=== PATIENT | male | born 1940 | race Caucasian/White ===

== ENCOUNTER 2017-01-11 20:04 | Emergency (ER) | payer MEDICARE, OTHER ==
[2017-01-11 20:12] VITALS: BP 181/65
--- NOTE | 2017-01-11 20:31 | ED Physician Documentation ---
PD HPI LOWER EXT INJURY - Stated complaint Stated Complaint: R PINKY TOE BLEEDING - Chief complaint Chief Complaint: Trauma Ext - History obtained from History obtained from: Patient, Friend - History of Present Illness PD HPI LOW EXT INJURY LOCATION: Right, Toe (5th) Type of injury: Laceration Where injury occurred: Home Timing - onset: Today Timing - duration: Hours Timing - details: Abrupt onset, Still present Improved by: Dressing Worsened by: Moving Contributing factors: Other (on aspirin). No: Anticoagulated Similar symptoms before: Has not had sx before Recently seen: Not recently seen - Additional information Additional information: 76 y/o male with a history of htn and oncomycosis of the toes was trimming his nails this morning when he got blood back from the tip of the 5th digit and he has not been able to control the bleeding since. Review of Systems Constitutional: denies: Fever Respiratory: denies: Dyspnea GI: denies: Vomiting Skin: reports: Laceration (s). denies: Rash Musculoskeletal: denies: Neck pain, Back pain, Extremity pain PD PAST MEDICAL HISTORY - Past Medical History Cardiovascular: Hypertension, High cholesterol GI: GERD - Past Surgical History Past Surgical History: Yes General: Colonoscopy - Present Medications Home Medications: Ambulatory Orders Medication Instructions Recorded Confirmed Aspirin [Aspir 81] 81 mg PO 08/29/13 08/29/13 Esomeprazole Magnesium [Nexium] 40 mg PO DAILY 08/29/13 08/29/13 Loratadine [Claritin] 5 mg PO 08/29/13 08/29/13 Moro-3/Dha/Epa/Fish Oil [Fish Oil] 500 mg PO 08/29/13 08/29/13 Simvastatin [Zocor] 40 mg PO 08/29/13 08/29/13 Vit D3-Vit K/Berberine/Hops 1 each PO 08/29/13 08/29/13 [Ostera Tablet] hydroCHLOROthiazide [Hydrodiuril] 25 mg PO 08/29/13 08/29/13 - Allergies Allergies/Adverse Reactions: Allergies Allergy/AdvReac Type Severity Reaction Status Date / Time No Known Drug Allergies Allergy Verified 01/11/17 20:10 - Social History Does the pt smoke?: No Smoking Status: Never smoker Does the pt drink ETOH?: Yes Does the pt have substance abuse?: No - Immunizations Immunizations are current?: Yes - POLST Patient has POLST: Yes PD ED PE NORMAL - Vitals Vital signs reviewed: Yes (hypertensive ) - General General: No acute distress, Well developed/nourished - HEENT HEENT: Atraumatic, PERRL, EOMI - Respiratory Respiratory: No respiratory distress - Extremities Extremities: Other (There is oncomycosis present with nail deformity. At the tip of the 5th digit the skin is skived and is bleeding. ) - Neuro Neuro: No motor deficit, No sensory deficit - Psych Psych: Normal mood, Normal affect Results - Vitals Vitals: Vital Signs - 24 hr 01/11/17 20:10 Temperature 36.7 C Heart Rate 100 Respiratory 16 Rate Blood Pressure 181/65 H O2 Saturation 100 Oxygen O2 Source Room air PD MEDICAL DECISION MAKING - ED course Complexity details: considered differential, d/w patient, d/w family ED course: 76 y/o male with a skin avulsion of the tip of the 5th digit on the right foot. It looks like he missed trimming the toenail itself and cut the skin. The clot is removed from the area the nail is trimmed and the base of the skin avulsion is cauterized with AgNO3. The remaining toes on that foot are trimmed and I have recommended the patient talk to Dr. Lira about treatment for the oncomyosis. Departure - Departure Disposition: 01 Home, Self Care Clinical Impression: Avulsion of skin of toe Qualifiers: Encounter type: initial encounter Qualified Code(s): S91.109A - Unspecified open wound of unspecified toe(s) without damage to nail, initial encounter Condition: Stable Instructions: ED Avulsion Dermal Follow-Up: Micah Lira MD [Primary Care Provider] -
== END 2017-01-11 21:08 | disposition home or self-care (01) ==
LOC: ED 20:04
DX: S91.104A Unspecified open wound of right lesser toe(s) without damage to nail, initial encounter (principal); W27.8XXA Contact with other nonpowered hand tool, initial encounter; Y93.E8 Activity, other personal hygiene; Y92.009 Unspecified place in unspecified non-institutional (private) residence as the place of occurrence of the external cause; B35.1 Tinea unguium; I10 Essential (primary) hypertension; Z79.82 Long term (current) use of aspirin
CPT/HCPCS: 11730; 99282; 99283

== ENCOUNTER 2017-12-23 08:00 | Outpatient (CLI) | payer MEDICARE, OTHER ==
[2017-12-23 19:00] LABS: BASOPHILS # (AUTO) 0.1 10^3/uL (0.0-0.1); BASOPHILS % (AUTO) 1.1 %; EOSINOPHILS # (AUTO) 0.2 10^3/uL (0.0-0.7); EOSINOPHILS % (AUTO) 2.8 %; HGB - HEMOGLOBIN 12.7 g/dL (14.0-18.0); LYMPHOCYTES # (AUTO) 1.2 10^3/uL (1.5-3.5); LYMPHOCYTES % (AUTO) 18.6 %; MEAN CORPUSCULAR HGB CONC 34.5 g/dL (32.0-36.0); MEAN CORPUSCULAR VOLUME 89.9 fL (80.0-94.0); MEAN PLATELET VOLUME 7.9 fL (7.4-11.4); MONOCYTES # (AUTO) 0.6 10^3/uL (0.0-1.0); MONOCYTES % (AUTO) 9.2 %; NEUTROPHILS # (AUTO) 4.5 10^3/uL (1.5-6.6); NEUTROPHILS % (AUTO) 68.3 %; PLT - PLATELET COUNT 228 10^3/uL (130-450); RED BLOOD COUNT 4.09 10^6/uL (4.70-6.10); RED CELL DISTRIBUTION WIDTH 13.3 % (12.0-15.0); WHITE BLOOD COUNT 6.5 x10^3/uL (4.8-10.8)
[2017-12-23 19:08] LABS: ALBUMIN 4.2 g/dL (3.2-5.5); ALBUMIN/GLOBULIN RATIO 1.3 (1.0-2.2); CREATININE 0.6 mg/dL (0.6-1.2); TOTAL PROTEIN 7.4 g/dL (6.7-8.2)
[2017-12-23 19:27] LABS: THYROID STIMULATING HORMONE 2.17 uIU/mL (0.34-5.60)
== END 2017-12-23 08:01 ==
LOC: LAB.WCP 08:00
PROVIDERS: ATTEND Family Medicine
DX: E53.8 Deficiency of other specified B group vitamins (principal); R41.3 Other amnesia
CPT/HCPCS: 36415; 80053; 81599; 82607; 83921; 84443; 85025; 86592

== ENCOUNTER 2018-01-06 14:17 | Outpatient (CLI) | payer MEDICARE, OTHER ==
[2018-01-06 19:22] LABS: ALBUMIN 3.7 g/dL (3.2-5.5); ALBUMIN/GLOBULIN RATIO 1.1 (1.0-2.2); ALKALINE PHOSPHATASE 66 IU/L (42-121); ALT ALANINE AMINOTRANSFERASE 19 IU/L (10-60); AST ASPARTATE AMINOTRANSFERASE 28 IU/L (10-42); BILIRUBIN,TOTAL 0.6 mg/dL (0.2-1.0); BUN - BLOOD UREA NITROGEN 16 mg/dL (6-20); CALCIUM 9.3 mg/dL (8.5-10.3); CARBON DIOXIDE - CO2 26 mmol/L (21-32); CHLORIDE 100 mmol/L (101-111); CHOL/HDL RATIO 2.7 (<5.0); CHOLESTEROL 149 mg/dL; CREATININE 0.8 mg/dL (0.6-1.2); GFR - MDRD 94 (>89); GLUCOSE 97 mg/dL (70-100); HDL CHOLESTEROL 55 mg/dL; LDL CHOLESTEROL,CALCULATED 61 mg/dL; LDL/HDL RATIO 1.1 (<3.6); SODIUM 133 mmol/L (135-145); TOTAL PROTEIN 7.1 g/dL (6.7-8.2); VLDL CHOLESTEROL 33 mg/dL
== END 2018-01-06 14:18 | disposition home or self-care (01) ==
LOC: LAB.WCP 14:17
PROVIDERS: ATTEND Family Medicine
DX: E78.9 Disorder of lipoprotein metabolism, unspecified (principal)
CPT/HCPCS: 36415; 80053; 80061; 83721

== ENCOUNTER 2019-02-03 08:00 | Outpatient (CLI) | payer MEDICARE, OTHER ==
[2019-02-03 12:34] LABS: BASOPHILS # (AUTO) 0.1 10^3/uL (0.0-0.1); BASOPHILS % (AUTO) 1.3 %; EOSINOPHILS # (AUTO) 0.3 10^3/uL (0.0-0.7); EOSINOPHILS % (AUTO) 7.4 %; LYMPHOCYTES # (AUTO) 1.2 10^3/uL (1.5-3.5); LYMPHOCYTES % (AUTO) 30.6 %; MEAN CORPUSCULAR HEMOGLOBIN 32.4 pg (27.0-31.0); MEAN CORPUSCULAR HGB CONC 34.3 g/dL (32.0-36.0); MEAN CORPUSCULAR VOLUME 94.5 fL (80.0-94.0); MEAN PLATELET VOLUME 10.6 fL (7.4-11.4); MONOCYTES # (AUTO) 0.4 10^3/uL (0.0-1.0); MONOCYTES % (AUTO) 11.4 %; NEUTROPHILS # (AUTO) 1.8 10^3/uL (1.5-6.6); PLT - PLATELET COUNT 229 10^3/uL (130-450); RED BLOOD COUNT 4.01 10^6/uL (4.70-6.10); RED CELL DISTRIBUTION WIDTH 12.7 % (12.0-15.0); WHITE BLOOD COUNT 3.8 x10^3/uL (4.8-10.8)
[2019-02-03 13:01] LABS: HB2 TOTAL 14.5 g/dL; HEMOGLOBIN A1C 0.49 g/dL; HEMOGLOBIN A1C % 5.2 % (4.6-6.2)
[2019-02-03 13:03] LABS: ALBUMIN 4.2 g/dL (3.2-5.5); ALBUMIN/GLOBULIN RATIO 1.6 (1.0-2.2); BILIRUBIN,TOTAL 0.9 mg/dL (0.2-1.0); CREATININE 0.6 mg/dL (0.6-1.2); TOTAL PROTEIN 6.9 g/dL (6.7-8.2)
== END 2019-02-03 23:59 | disposition home or self-care (01) ==
LOC: LAB.WCP 08:00
PROVIDERS: ATTEND Family Medicine
DX: E53.8 Deficiency of other specified B group vitamins (principal); R73.01 Impaired fasting glucose
CPT/HCPCS: 36415; 80053; 82607; 83036; 84443; 85025

== ENCOUNTER 2021-03-11 09:27 | Outpatient (CLI) | payer MEDICARE, OTHER ==
[2021-03-11 12:16] LABS: BASOPHILS % (AUTO) 0.6 %; EOSINOPHILS # (AUTO) 0.1 10^3/uL (0.0-0.7); EOSINOPHILS % (AUTO) 3.1 %; HCT - HEMATOCRIT 37.8 % (42.0-52.0); HGB - HEMOGLOBIN 12.6 g/dL (14.0-18.0); LYMPHOCYTES # (AUTO) 1.3 10^3/uL (1.5-3.5); LYMPHOCYTES % (AUTO) 36.8 %; MEAN CORPUSCULAR HGB CONC 33.3 g/dL (32.0-36.0); MEAN CORPUSCULAR VOLUME 92.9 fL (80.0-94.0); MONOCYTES # (AUTO) 0.4 10^3/uL (0.0-1.0); NEUTROPHILS # (AUTO) 1.7 10^3/uL (1.5-6.6); NEUTROPHILS % (AUTO) 48.5 %; PLT - PLATELET COUNT 212 10^3/uL (130-450); RED BLOOD COUNT 4.07 10^6/uL (4.70-6.10); RED CELL DISTRIBUTION WIDTH 13.2 % (12.0-15.0); WHITE BLOOD COUNT 3.6 x10^3/uL (4.8-10.8)
[2021-03-11 12:54] LABS: ALBUMIN 4.2 g/dL (3.2-5.5); ALBUMIN/GLOBULIN RATIO 1.6 (1.0-2.2); ALKALINE PHOSPHATASE 79 IU/L (42-121); ALT ALANINE AMINOTRANSFERASE 12 IU/L (10-60); AST ASPARTATE AMINOTRANSFERASE 16 IU/L (10-42); BILIRUBIN,TOTAL 0.9 mg/dL (0.2-1.0); BUN - BLOOD UREA NITROGEN 9 mg/dL (6-20); CALCIUM 9.1 mg/dL (8.5-10.3); CARBON DIOXIDE - CO2 26 mmol/L (21-32); CHLORIDE 93 mmol/L (101-111); CHOL/HDL RATIO 4.2 (<5.0); CHOLESTEROL 229 mg/dL; CREATININE 0.7 mg/dL (0.6-1.2); GFR - MDRD 109 (>89); GLUCOSE 89 mg/dL (70-100); HDL CHOLESTEROL 55 mg/dL; LDL CHOLESTEROL,CALCULATED 158 mg/dL; LDL/HDL RATIO 2.9 (<3.6); POTASSIUM 4.7 mmol/L (3.5-5.0); SODIUM 127 mmol/L (135-145); THYROID STIMULATING HORMONE 2.94 uIU/mL (0.34-5.60); TOTAL PROTEIN 6.8 g/dL (6.7-8.2); TRIGLYCERIDES 78 mg/dL; VLDL CHOLESTEROL 16 mg/dL
[2021-03-11 13:00] LABS: ESTIMATED AVERAGE GLUCOSE 97 mg/dL (70-100)
== END 2021-03-11 23:59 | disposition home or self-care (01) ==
LOC: LAB.WCP 09:27
PROVIDERS: ATTEND Internal Medicine
DX: I10 Essential (primary) hypertension (principal); E53.8 Deficiency of other specified B group vitamins; R73.01 Impaired fasting glucose; R41.3 Other amnesia
CPT/HCPCS: 36415; 80053; 80061; 82607; 83036; 83721; 84443; 85025

== ENCOUNTER 2021-12-08 14:52 | Outpatient (CLI) | payer MEDICARE, OTHER ==
--- NOTE | 2021-12-08 16:55 | MRI Report ---
PROCEDURE: Lumbar Spine W/O INDICATIONS: L1 COMPRESSION FX TECHNIQUE: Noncontrast sagittal T1 spin echo and T2 fast echo, sagittal STIR, axial T1 and T2 fast spin echo thr ough the lumbar spine. In cases with scoliosis, additional coronal T2 fast spin echo may be performe d. COMPARISON: None. FINDINGS: Image quality: Excellent. Alignment and Curvature: There is 4 mm retrolisthesis of L2 on L3, 5 mm retrolisthesis of L3 on L4, L5 on S1. Bone Marrow: Marrow is of normal overall signal. There is a greater than 90% compression deformity a t L1 with approximately 3 mm retropulsion of the posterior aspect of the vertebral body. There is inc reased T2/STIR signal intensity within the vertebral body. In addition, prominent reactive endplate c hanges are present at L3. Linear T1 hypointensity is present within this region without overall verte bral body height loss. Spinal Cord: Conus medullaris terminates at the L1 level. Visualized cord demonstrates normal signa l and size. Paraspinous Soft Tissues: No paravertebral masses. Discs: Moderate severe desiccation is present throughout the lumbar spine. L1-L2: Mild disc bulge with moderate spinal stenosis. Moderate bilateral foraminal narrowing, left greater than right with facet and ligamentum flavum hypertrophy. L2-L3: Mild disc bulge with mild spinal stenosis. Moderate to severe left and moderate right kelly inal narrowing with facet and ligamentum flavum hypertrophy. L3-L4: Mild disc bulge with mild spinal stenosis. Severe right and moderate left foraminal narrowin g with nerve root flattening on the right. Facet and ligamentum flavum hypertrophy are present. L4-L5: Mild disc bulge without spinal stenosis. Severe right and moderate left foraminal narrowing with nerve root flattening on the right. Facet and ligamentum flavum hypertrophy are present. L5-S1: Mild disc bulge without spinal stenosis. Severe bilateral foraminal narrowing with nerve suraj t flattening most notable on the left. Facet and ligamentum flavum hypertrophy are present. IMPRESSION: Greater than 90% acute/subacute compression deformity at L1. Endplate changes along the superior endplate of L3 with linear hypointensity suggestive of fracture w ithout loss of vertebral body height. Multilevel spinal stenosis most notable at L1-2, L2-3 and L3-4 secondary to disc bulge with contribut ing effect of facet/ligament of flavum arthropathy as well as retropulsion from compression fracture at L1. Multilevel moderate to severe foraminal narrowing most severe from L3-4 through L5-S1 predominantly s econdary to facet arthropathy. Reviewed by: Rona Toney MD on 12/08/2021 4:54 PM PDT Approved by: Rona Toney MD on 12/08/2021 4:54 PM PDT Station ID: [id number]
== END 2021-12-08 14:53 | disposition home or self-care (01) ==
LOC: DI 14:52
PROVIDERS: ATTEND Physical Medicine & Rehabilitation Pain Medicine
DX: S32.010A Wedge compression fracture of first lumbar vertebra, initial encounter for closed fracture (principal); M47.816 Spondylosis without myelopathy or radiculopathy, lumbar region; M47.817 Spondylosis without myelopathy or radiculopathy, lumbosacral region; M48.061 Spinal stenosis, lumbar region without neurogenic claudication; M43.16 Spondylolisthesis, lumbar region; M43.17 Spondylolisthesis, lumbosacral region; M51.36 Other intervertebral disc degeneration, lumbar region; M51.37 Other intervertebral disc degeneration, lumbosacral region

== ENCOUNTER 2021-12-12 09:19 | Outpatient (CLI) | payer MEDICARE, OTHER ==
[2021-12-12 11:48] LABS: BASOPHILS % (AUTO) 0.6 %; EOSINOPHILS # (AUTO) 0.2 10^3/uL (0.0-0.7); EOSINOPHILS % (AUTO) 3.8 %; HCT - HEMATOCRIT 39.1 % (42.0-52.0); HGB - HEMOGLOBIN 13.1 g/dL (14.0-18.0); LYMPHOCYTES # (AUTO) 1.5 10^3/uL (1.5-3.5); LYMPHOCYTES % (AUTO) 32.4 %; MEAN CORPUSCULAR HEMOGLOBIN 30.9 pg (27.0-31.0); MEAN CORPUSCULAR HGB CONC 33.5 g/dL (32.0-36.0); MEAN CORPUSCULAR VOLUME 92.2 fL (80.0-94.0); MEAN PLATELET VOLUME 10.2 fL (7.4-11.4); MONOCYTES # (AUTO) 0.4 10^3/uL (0.0-1.0); MONOCYTES % (AUTO) 8.8 %; NEUTROPHILS # (AUTO) 2.6 10^3/uL (1.5-6.6); NEUTROPHILS % (AUTO) 54.2 %; PLT - PLATELET COUNT 236 10^3/uL (130-450); RED BLOOD COUNT 4.24 10^6/uL (4.70-6.10); WHITE BLOOD COUNT 4.8 x10^3/uL (4.8-10.8)
[2021-12-12 12:26] LABS: THYROID STIMULATING HORMONE 3.35 uIU/mL (0.34-5.60)
[2021-12-12 12:32] LABS: ALBUMIN 3.9 g/dL (3.2-5.5); ALBUMIN/GLOBULIN RATIO 1.3 (1.0-2.2); ALKALINE PHOSPHATASE 110 IU/L (42-121); ALT ALANINE AMINOTRANSFERASE 11 IU/L (10-60); AST ASPARTATE AMINOTRANSFERASE 16 IU/L (10-42); BILIRUBIN,TOTAL 0.9 mg/dL (0.2-1.0); BUN - BLOOD UREA NITROGEN 8 mg/dL (6-20); CARBON DIOXIDE - CO2 27 mmol/L (21-32); CHLORIDE 99 mmol/L (101-111); CHOL/HDL RATIO 4.6 (<5.0); CHOLESTEROL 213 mg/dL; CREATININE 0.6 mg/dL (0.6-1.2); GFR - MDRD 130 (>89); GLUCOSE 89 mg/dL (70-100); HDL CHOLESTEROL 46 mg/dL; LDL CHOLESTEROL,CALCULATED 150 mg/dL; LDL/HDL RATIO 3.3 (<3.6); POTASSIUM 4.5 mmol/L (3.5-5.0); SODIUM 134 mmol/L (135-145); TOTAL PROTEIN 6.9 g/dL (6.7-8.2); TRIGLYCERIDES 83 mg/dL; VLDL CHOLESTEROL 17 mg/dL
[2021-12-12 12:40] LABS: CREATININE,URINE 82.5 mg/dL; MICROALBUM/CREATININE RATIO,UR 3.6 ug/mg (<30.0); MICROALBUMIN,URINE 0.3 mg/dL (0-300.0)
[2021-12-12 12:44] LABS: ESTIMATED AVERAGE GLUCOSE 94 mg/dL (70-100); HEMOGLOBIN A1c% 4.9 % (4.27-6.07)
== END 2021-12-12 09:20 | disposition home or self-care (01) ==
LOC: LAB.N 09:19
PROVIDERS: ATTEND Internal Medicine
DX: I10 Essential (primary) hypertension (principal); E78.5 Hyperlipidemia, unspecified; R73.01 Impaired fasting glucose; E53.8 Deficiency of other specified B group vitamins; F32.A Depression, unspecified
CPT/HCPCS: 36415; 80053; 80061; 82043; 82570; 82607; 83036; 83721; 84443; 85025

== ENCOUNTER 2023-06-05 13:35 | Outpatient (CLI) | payer MEDICARE, OTHER | END 2023-06-05 13:36 | disposition short-term general hospital (02) | LOC: EMS 13:35 | DX: R10.31 Right lower quadrant pain (principal); R10.32 Left lower quadrant pain; R14.0 Abdominal distension (gaseous); R11.2 Nausea with vomiting, unspecified; R19.7 Diarrhea, unspecified; R23.8 Other skin changes; R68.2 Dry mouth, unspecified | CPT/HCPCS: A0425; A0427; A0888 ==

== ENCOUNTER 2023-06-17 10:40 | Outpatient (CLI) | payer MEDICARE, OTHER ==
[2023-06-17 17:39] LABS: BASOPHILS % (AUTO) 0.8 %; EOSINOPHILS # (AUTO) 0.1 10^3/uL (0.0-0.7); EOSINOPHILS % (AUTO) 1.6 %; HCT - HEMATOCRIT 35.5 % (42.0-52.0); HGB - HEMOGLOBIN 11.1 g/dL (14.0-18.0); LYMPHOCYTES # (AUTO) 1.7 10^3/uL (1.5-3.5); LYMPHOCYTES % (AUTO) 33.9 %; MEAN CORPUSCULAR HEMOGLOBIN 30.3 pg (27.0-31.0); MEAN CORPUSCULAR HGB CONC 31.3 g/dL (32.0-36.0); MEAN PLATELET VOLUME 9.9 fL (7.4-11.4); MONOCYTES # (AUTO) 0.5 10^3/uL (0.0-1.0); MONOCYTES % (AUTO) 8.8 %; NEUTROPHILS # (AUTO) 2.8 10^3/uL (1.5-6.6); NEUTROPHILS % (AUTO) 54.5 %; PLT - PLATELET COUNT 557 10^3/uL (130-450); RED BLOOD COUNT 3.66 10^6/uL (4.70-6.10); RED CELL DISTRIBUTION WIDTH 13.4 % (12.0-15.0); WHITE BLOOD COUNT 5.1 x10^3/uL (4.8-10.8)
[2023-06-17 17:56] LABS: ALBUMIN 3.4 g/dL (3.2-5.5); ALBUMIN/GLOBULIN RATIO 1.2 (1.0-2.2); ALKALINE PHOSPHATASE 81 IU/L (42-121); ALT ALANINE AMINOTRANSFERASE 24 IU/L (10-60); AST ASPARTATE AMINOTRANSFERASE 20 IU/L (10-42); BILIRUBIN,TOTAL 0.3 mg/dL (0.2-1.0); BUN - BLOOD UREA NITROGEN 10 mg/dL (6-20); CALCIUM 8.8 mg/dL (8.5-10.3); CARBON DIOXIDE - CO2 25 mmol/L (21-32); CHLORIDE 103 mmol/L (101-111); CHOL/HDL RATIO 6.2 (<5.0); CHOLESTEROL 204 mg/dL; CREATININE 0.7 mg/dL (0.6-1.3); GFR - MDRD 108 (>89); GLUCOSE 90 mg/dL (74-104); HDL CHOLESTEROL 33 mg/dL; LDL CHOLESTEROL,CALCULATED 138 mg/dL; LDL/HDL RATIO 4.2 (<3.6); POTASSIUM 3.9 mmol/L (3.5-4.5); SODIUM 136 mmol/L (135-145); TOTAL PROTEIN 6.3 g/dL (6.4-8.9); TRIGLYCERIDES 164 mg/dL (48-352); VLDL CHOLESTEROL 33 mg/dL
[2023-06-17 18:12] LABS: THYROID STIMULATING HORMONE 4.16 uIU/mL (0.34-5.60)
[2023-06-17 19:36] LABS: ESTIMATED AVERAGE GLUCOSE 94 mg/dL (70-100); HEMOGLOBIN A1c% 4.9 % (4.27-6.07)
== END 2023-06-17 10:41 | disposition home or self-care (01) ==
LOC: LAB.N 10:40
PROVIDERS: ATTEND Internal Medicine
DX: E78.5 Hyperlipidemia, unspecified (principal); R73.01 Impaired fasting glucose; E53.8 Deficiency of other specified B group vitamins; G31.09 Other frontotemporal neurocognitive disorder; F02.80 Dementia in other diseases classified elsewhere, unspecified severity, without behavioral disturbance, psychotic disturbance, mood disturbance, and anxiety; I10 Essential (primary) hypertension
CPT/HCPCS: 36415; 80053; 80061; 82607; 83036; 83721; 84443; 85025

== ENCOUNTER 2023-07-28 08:00 | Outpatient (CLI) | payer MEDICARE, OTHER | END 2023-07-28 23:59 | disposition home or self-care (01) | LOC: LAB 08:00 | PROVIDERS: ATTEND Urology | DX: N40.1 Benign prostatic hyperplasia with lower urinary tract symptoms (principal); N13.8 Other obstructive and reflux uropathy | CPT/HCPCS: 87077; 87086; 87181 ==

== ENCOUNTER 2025-01-10 14:53 | Inpatient (IN) ==
--- NOTE | 2025-01-10 15:13 | ED Physician Documentation ---
History of Present Illness Stated complaint Stated Complaint: GENERAL WEAKNESS/UNABLE TO AMBULATE Chief complaint Chief Complaint: General History obtained from History obtained from: Patient and EMS Additonal information Additional information: This is an 84-year-old gentleman with dementia. Lives with . Was reportedly too weak to get out of a chair today which is not his baseline. Patient has no complaints. Denies pain. Thinks he is at the grocery store. He does have a chronic cough per the , not worse than usual. He had a negative x-ray a few months ago for that. No reported fevers or other complaints. Meds/Allgy Home Medications Ambulatory Orders Medication Instructions Recorded Confirmed donepezil 10 mg tablet 10 mg PO QDAY 07/20/2407/20 mirtazapine 7.5 mg tablet 7.5 mg PO QPM PRN 07/20/24 1 09/20/23 risperidone 0.5 mg tablet 0.5 mg PO BID PRN 07/20/24 1 09/20/23 tamsulosin 0.4 mg capsule 0.4 mg PO QPM 07/20/2407/20 Allergies Allergies Allergy/AdvReac Type Severity Reaction Status Date / Time No Known Drug Allergies Allergy Verified 01/10/25 15:07 PFSH Active Problems All Active Problems (Updated 01/10/25 @ 16:08 by Loyd Dc MD) Community acquired pneumonia (Acute) Dementia (Acute) Bronchitis (Acute) Viral upper respiratory infection (Acute) Medical History Medical History (Updated 01/10/25 @ 16:08 by Loyd Dc MD) BPH (benign prostatic hyperplasia) Social History Social History (Updated 01/10/25 @ 15:26 by Mima Santiago RN) Smoking Status: Never smoker Do you dip or chew tobacco?: Yes Living arrangement: At home Marital Status: Living Condition: With spouse/s.o. Relationship: Spouse Do you feel safe in your home environment?: Yes Suffered physical, verbal, emotional, or financial abuse?: No (difficult to obtain) History of Abuse: No Frequency: Daily POLST Patient has POLST: Yes Exam Exam Vital Signs: Vital Signs x48h Temp Pulse Resp BP Pulse Ox 01/10/25 14:58 36.3 C L 90 18 123/64 96 Constitutional He is alert and oriented person only. He follows commands and appears in no apparent distress. He is weak and unable to sit up unassisted. Respiratory normal respiratory effort and clear to auscultation bilaterally Diminished with fine crackles at the right base, left base sounds normal Cardiovascular normal heart rate noted, regular rhythm noted and no murmur Gastrointestinal abdomen soft to palpation and nontender to palpation Neurology He is quite weak and cannot sit up unassisted. There is no lateralization to his weakness. Results Vitals Vitals: Vital Signs - 24 hr 01/10/25 14:58 Temperature 36.3 C L Temperature Source Temporal Artery Scan Pulse Rate 90 Respiratory Rate 18 Blood Pressure 123/64 O2 Saturation 96 O2 Source Room air Pain Intensity 0 Oxygen O2 Source Room air Labs Labs: Laboratory Tests 01/10/25 15:23 WBC 15.6 H RBC 4.20 L Hgb 13.2 L Hct 38.7 L MCV 92.1 MCH 31.4 H MCHC 34.1 RDW 13.2 Plt Count 184 MPV 9.7 Neut # (Auto) 13.0 H Lymph # (Auto) 1.2 L [place] # (Auto) 1.3 H Eos # (Auto) 0.0 Baso # (Auto) 0.0 Absolute Nucleated RBC 0.00 Nucleated RBC % 0.0 Sodium 134 L Potassium 4.3 Chloride 101 Carbon Dioxide 28 Anion Gap 5.0 L BUN 17 Creatinine 0.9 Estimated GFR (MDRD) 81 L Glucose 102 Lactic Acid 1.3 Calcium 9.0 Total Bilirubin 1.0 AST 12 ALT 9 L Alkaline Phosphatase 67 Total Creatine Kinase 56 Total Protein 6.8 Albumin 3.9 Globulin 2.9 Albumin/Globulin Ratio 1.3 Rads (name of study) CT of the head showing volume loss and white matter disease without acute findings.: Relevant Findings:: Final report received and EMP independent interpretation of test (NAD) Single view chest x-ray concerning for right upper lobe infiltrate.: Relevant Findings:: Final report received and EMP independent interpretation of test PD Medical Decision Making ED course ED course: This is an 84-year-old gentleman with dementia who presents by ambulance for weakness starting today. He has abnormal lung sounds chronic cough. Most of the history is taken from the . He is quite weak and workup demonstrates a white count of 15,000 with modest stable anemia on CBC. His CMP showing mild chronic hyponatremia and just a touch of what looks like KOBI. Chest x-ray showing right upper lobe pneumonia. He does fit SIRS criteria with a white count and heart rate albeit just barely. Blood cultures were sent and he was given ceftriaxone and azithromycin for community-acquired pneumonia. agreeable to admission for treatment of this and I spoke with Dr. Lorenzana for same at 4:06 PM. The patient and family are counseled as to the diagnosis and need for admission. This document was made in part using voice recognition software, while efforts are made to proofread this document, sound alike an grammatical errors may occur. Discharge Plan Discharge Patient Disposition: 66 [facility] DC/Xfer Condition: Fair Clinical Impression: Community acquired pneumonia Prescriptions: No Action donepezil 10 mg tablet 10 mg PO QDAY risperidone 0.5 mg tablet 0.5 mg PO BID PRN mirtazapine 7.5 mg tablet 7.5 mg PO QPM PRN tamsulosin 0.4 mg capsule 0.4 mg PO QPM Print Language: Romanian
[2025-01-10 15:34] LABS: BASOPHILS % (AUTO) 0.2 %; EOSINOPHILS % (AUTO) 0.1 %; HCT - HEMATOCRIT 38.7 % (42.0-52.0); HGB - HEMOGLOBIN 13.2 g/dL (14.0-18.0); LYMPHOCYTES # (AUTO) 1.2 10^3/uL (1.5-3.5); LYMPHOCYTES % (AUTO) 7.6 %; MEAN CORPUSCULAR HEMOGLOBIN 31.4 pg (27.0-31.0); MEAN CORPUSCULAR HGB CONC 34.1 g/dL (32.0-36.0); MEAN CORPUSCULAR VOLUME 92.1 fL (80.0-94.0); MEAN PLATELET VOLUME 9.7 fL (7.4-11.4); MONOCYTES # (AUTO) 1.3 10^3/uL (0.0-1.0); MONOCYTES % (AUTO) 8.1 %; NEUTROPHILS % (AUTO) 83.5 %; PLT - PLATELET COUNT 184 10^3/uL (130-450); RED CELL DISTRIBUTION WIDTH 13.2 % (12.0-15.0); WHITE BLOOD COUNT 15.6 x10^3/uL (4.8-10.8)
[2025-01-10 15:44] LABS: ALBUMIN 3.9 g/dL (3.2-5.5); ALBUMIN/GLOBULIN RATIO 1.3 (1.0-2.2); CREATININE 0.9 mg/dL (0.6-1.3); POTASSIUM 4.3 mmol/L (3.5-4.5); TOTAL PROTEIN 6.8 g/dL (6.4-8.9)
[2025-01-10] MEDS: SODIUM CHLORIDE 0.9% 1,000 ML IV STA (15:45)
--- NOTE | 2025-01-10 15:51 | XRAY Report ---
PROCEDURE: XR Chest 1V INDICATIONS: cough TECHNIQUE: One view of the chest was acquired. COMPARISON: 07/20/2024. FINDINGS: Surgical changes and devices: None. Lungs and pleura: No pleural effusions or pneumothorax. Ill-defined airspace opacity in right upper lung field is seen.. Mediastinum: Mediastinal contours appear normal. Heart size is normal. Bones and chest wall: No suspicious bony lesions. Overlying soft tissues appear unremarkable. IMPRESSION: Finding may represent right upper lobe infiltrate. Clinical correlation and follow-up is recommended. Left lung is clear. No pleural effusion or pneumothorax. Reviewed by: Douglas Benjamin MD on 01/10/2025 3:50 PM PDT Approved by: Douglas Benjamin MD on 01/10/2025 3:50 PM PDT Station ID: [id number]
--- NOTE | 2025-01-10 15:53 | CT Report ---
PROCEDURE: CT Head WO INDICATIONS: weakness TECHNIQUE: Noncontrast 4.5 mm thick angled axial sections acquired from the foramen magnum to the vertex. For radiation dose reduction, the following was used: automated exposure control, adjustment of mA and/or kV according to patient size. COMPARISON: 10/28/2013 FINDINGS: Image quality: Excellent. CSF spaces: Basal cisterns are patent. No extra-axial fluid collections. The ventricles are symmetric in size and shape. Brain: No intracranial bleeds or masses. There is cerebral volume loss for age, with resultant ventricular and sulcal prominence. There are periventricular and deep white matter chronic small vessel ischemic changes. There is intracranial internal carotid artery atherosclerosis. Skull and face: Calvarium and visualized facial bones appear intact, without suspicious lesions. Sinuses: Visualized sinuses and mastoids are clear. IMPRESSION: 1. No acute intracranial pathology. 2. Age-related volume loss and mild white matter small vessel chronic ischemic changes. Reviewed by: Douglas Benjamin MD on 01/10/2025 3:52 PM PDT Approved by: Douglas Benjamin MD on 01/10/2025 3:52 PM PDT Station ID: [id number]
--- OUTSIDE RECORDS SUMMARY | 2025-01-10 16:16 | EXTERNAL MEDICAL SUMMARY RPT | Continuity of Care Document ---
Author Organization [facility] Address [address] [place] [id number] Phone Results/Labs test date facility value unit notes Result panel 1 NUCLEATED RED BLOOD CELLS AUTO 2025-01-10 15:23 [facility] 0.0 /100wbc (missing) BASOPHILS # (AUTO) 2025-01-10 15:23 [facility] 0.0 10 3/ul (missing) EOSINOPHILS # (AUTO) 2025-01-10 15:23 [facility] 0.0 10 3/ul (missing) NRBC ABSOLUTE COUNT (AUTO) 2025-01-10 15:23 [facility] 0.00 x10 3/ul (missing) CREATININE 2025-01-10 15:23 [facility] 0.9 mg/dl As of January 2023 testing method has changed, this may include reference ranges. BILIRUBIN,TOTAL 2025-01-10 15:23 [facility] 1.0 mg /dl As of January 2023 testing method has changed, this may include reference ranges. LYMPHOCYTES # (AUTO) 2025-01-10 15:23 [facility] 1.2 10 3/ul (missing) ALBUMIN/GLOBULIN RATIO 2025-01-10 15:23 [facility] 1.3 (missing) (missing) MONOCYTES # (AUTO) 2025-01-10 15:23 [facility] 1.3 10 3/ul (missing) LACTIC ACID, VENOUS 2025-01-10 15:23 [facility] 1.3 mmol/l N As of January 2023 testing method has changed, this may include reference ranges. CHLORIDE 2025-01-10 15:23 [facility] 101 mmol/l As of January 2023 testing method has changed, this may include reference ranges. GLUCOSE 2025-01-10 15:23 [facility] 102 mg/dl As of January 2023 testing method has changed, this may include reference ranges. AST ASPARTATE AMINOTRANSFERASE 2025-01-10 15[facility] 12 iu/l As of January 2023 testing method has changed, this may include reference ranges. NEUTROPHILS # (AUTO) 2025-01-10 15:23 [facility] 13.0 10 3/ul (missing) RED CELL DISTRIBUTION WIDTH 2025-01-10 15:23 [facility] 13.2 % (missing) HGB - HEMOGLOBIN 2025-01-10 15:23 [facility] 13.2 g /dl (missing) SODIUM 2025-01-10 15:23 [facility] 134 mmol/l (missing) WHITE BLOOD COUNT 2025-01-10 15:23 [facility] 15.6 x10 3/ul (missing) BUN - BLOOD UREA NITROGEN 2025-01-10 15:23 [facility] 17 mg/dl As of Jan testing method has changed, this may include reference ranges. PLT - PLATELET COUNT 2025-01-10 15:23 [facility] 184 10 3/ul (missing) GLOBULIN 2025-01-10 15:23 [facility] 2.9 g/dl (missing) CARBON DIOXIDE - CO2 2025-01-10 15:23 [facility] 28 mmol/l As of January 2023 testing method has changed, this may include reference ranges. ALBUMIN 2025-01-10 15:23 [facility] 3.9 g/dl As of January 2023 testing method has changed, this may include reference ranges. MEAN CORPUSCULAR HEMOGLOBIN 2025-01-10 15:23 [facility] 31.4 pg (missing) MEAN CORPUSCULAR HGB CONC 2025-01-10 15:23 [facility] 34.1 g/dl (missing) HCT - HEMATOCRIT 2025-01-10 15:23 [facility] 38.7 % (missing) RED BLOOD COUNT 2025-01-10 15:23 [facility] 4.20 10 6/ul (missing) POTASSIUM 2025-01-10 15:23 [facility] 4.3 mmol/l As of January 2023 testing method has changed, this may include reference ranges. ANION GAP 2025-01-10 15:23 [facility] 5.0 (missing ) (missing) CK- CREATINE KINASE 2025-01-10 15:23 [facility] 56 iu/l As of January 2023 testing method has changed, this may include reference ranges. TOTAL PROTEIN 2025-01-10 15:23 [facility] 6.8 g/dl As of January 2023 testing method has changed, this may include reference ranges. ALKALINE PHOSPHATASE 2025-01-10 15:23 [facility] 67 iu/l As of January 2023 testing method has changed, this may include reference ranges. GFR - MDRD 2025-01-10 15:23 [facility] 81 (tiburcio nixon) Social History date description facility
[2025-01-10] MEDS: cefTRIAXone 1 GM VIAL IVP STA (16:22)
[2025-01-10] MEDS: AZITHROMYCIN INJ 500 MG in SODIUM CHLORIDE 0.9% 250 ML IV STA (16:32)
--- NOTE | 2025-01-10 16:35 | HISTORY & PHYSICAL EXAMINATION ---
Chief Complaint Chief Complaint Chief Complaint: Weakness History of Present Illness Admitted From Admitted From:: Home with History Obtained From History obtained from: Interviewed with at bedside Exam Limitations: Patient is severely demented History of Present Illness HPI Comment/Other: 84-year-old male with PMH BPH, dementia who presents to the ER with weakness. His states that he is normally able to transfer, but not much more than that. She says today he could not even sit up in bed. He would not eat. denies fever, chills, chest pain, dyspnea, cough. In the ER, workup was significant for white blood cell count 15.6. UA concerning for UTI. CT head was without acute abnormality. Chest x-ray with right upper lobe infiltrate suggestive of pneumonia. Patient is severely demented, and unable to perform ADLs. His is unable to care for him. Hospitalist was contacted for observation for generalized weakness and pneumonia with concern for clinical deterioration given his inability to care for himself Meds/Allgy Home Medications Ambulatory Orders Medication Instructions Recorded Confirmed donepezil 10 mg tablet 10 mg PO QPM 07/20/24 risperidone 0.5 mg tablet 0.5 mg PO BID 07/20/2401/10 tamsulosin 0.4 mg capsule 0.4 mg PO QPM 07/20/2401/10 ascorbic acid (vitamin C) 500 mg 500 mg PO DAILY 01/1001/10/25 tablet (C-500) cholecalciferol (vitamin D3) 25 1,000 unit PO DAILY 01/10/25 mcg (1,000 unit) capsule glucosamine sulfate 750 mg tablet 750 mg PO DAILY 12/3101/10/25 turmeric 400 mg capsule 400 mg PO DAILY 01/10/2506/26 Allergies Allergies Allergy/AdvReac Type Severity Reaction Status Date / Time No Known Drug Allergies Allergy Verified 01/10/25 15:07 PFSH Active Problems All Active Problems (Updated 01/10/25 @ 18:57 by Brady Rae DNP) Generalized weakness (Acute) UTI (urinary tract infection) (Acute) Community acquired pneumonia (Acute) Dementia (Acute) Bronchitis (Acute) Viral upper respiratory infection (Acute) Medical History Medical History (Updated 01/10/25 @ 18:57 by Brady Rae DNP) BPH (benign prostatic hyperplasia) Social History Social History (Updated 01/10/25 @ 15:26 by Mima Santiago RN) Smoking Status: Never smoker Do you dip or chew tobacco?: Yes (chew) Do you vape?: No Living arrangement: At home Marital Status: Living Condition: With spouse/s.o. Relationship: Spouse Level: Assisted Home Mobility Equipment: Walker Do you feel safe in your home environment?: Yes Suffered physical, verbal, emotional, or financial abuse?: No History of Abuse: No Frequency: Daily POLST Patient has POLST: Yes Review of Systems Status of ROS: unobtainable due to mental status Exam Exam Vital Signs: Vital Signs x48h Temp Pulse Pulse Resp BP BP Pulse Ox 01/10/25 17:36 37.0 C 63 20 116/82 96 01/10/25 17:15 66 20 95 01/10/25 14:58 36.3 C L 90 18 123/64 96 Constitutional Chronically ill-appearing elderly male Eyes EOMs intact bilaterally Neck/C-Spine visual inspection normal Lymph no lymphadenopathy noted Chest inspection of chest normal Respiratory normal respiratory effort Coarse breath sounds especially in the right upper lobe Cardiovascular normal heart rate noted and regular rhythm noted Gastrointestinal abdomen normal to inspection and abdomen soft to palpation Extremities normal to inspection Neurology Tracks with eyes, moves all extremities. Occasionally says he likes coffee but is unable to participate in conversation Skin skin color normal Conclusion/Plan Problem List (1) Community acquired pneumonia: Plan: Patient has a pneumonia in the right upper lobe as confirmed by chest x-ray Given his advanced dementia, I am concerned that he will not be able to care for himself at home and will further deteriorate, so he is being brought in for observation Lung inflation protocol, secretion clearance protocol Rocephin 2 g IV daily, azithromycin 500 mg p.o. daily Blood cultures x 2 in process (2) Dementia: Plan: reports that he has advanced dementia He has 2-3 phrases that he occasionally repeats, but is unable to participate in conversation May benefit from hospice at discharge Qualifiers: Dementia type: unspecified type Dementia severity: unspecified severity Dementia behavioral or psychological symptom: unspecified whether behavioral, psychotic, or mood disturbance or anxiety Qualified Code(s): F03.90 - Unspecified dementia, unspecified severity, without behavioral disturbance, psychotic disturbance, mood disturbance, and anxiety (3) UTI (urinary tract infection): Plan: UA with moderate blood, moderate leuk esterase, elevated RBC/WBC, many bacteria noted Rocephin as above This may also be contributing to his generalized weakness (4) Generalized weakness: Plan: This is a man of advanced age with advanced dementia He has confirmed pneumonia and UTI, which is exacerbating his dementia He is unable to sit up in bed without great assistance PT/OT eval Will likely benefit from placement at discharge Plan Per at bedside, he is to remain full code Placed in observation is surrogate decision maker and DPOA Lab Results Lab results reviewed: Yes 01/10/25 15:23 01/10/25 15:23 Core Measures Anticipated LOS I expect patient to be DC'd or transferred within 96 hours.: Yes DVT/VTE - Prophylaxis VTE/DVT Prophylaxis med ordered at admit?: Yes
[2025-01-10 16:44] LABS: BILIRUBIN,URINE NEGATIVE (NEGATIVE); GLUCOSE, URINE (UA) NEGATIVE (NEGATIVE); KETONES,URINE (UA) TRACE mg/dL (NEGATIVE); LEUKOCYTE ESTERASE, URINE MODERATE (NEGATIVE); NITRITE,URINE NEGATIVE (NEGATIVE); OCCULT BLOOD,URINE MODERATE (NEGATIVE); PROTEIN,URINE 30 mg/dL (NEGATIVE); UROBILINOGEN,URINE 0.2 (NORMAL) E.U./dL (NORMAL)
[2025-01-10 17:00] LABS: CLARITY,URINE HAZY (CLEAR)
[2025-01-10 17:01] LABS: BACTERIA,URINE Many /HPF (None Seen); SQUAMOUS EPITHELIAL CELL,UR RARE Squamous (<= Few); WBC CLUMPS,URINE PRESENT; WBC,URINE >25 /HPF (0-3)
[2025-01-10] MEDS ORDERED: ONDANSETRON ODT 4 MG TABLET TL PRN (17:25)
[2025-01-10] MEDS ORDERED: ONDANSETRON 4 MG/2 ML VIAL IVP PRN (17:25)
[2025-01-10] MEDS: SODIUM CHLORIDE FLUSH 0.9% 10 ML SYRINGE IVP SCH (17:36)
[2025-01-11 06:10] LABS: BASOPHILS # (AUTO) 0.1 10^3/uL (0.0-0.1); BASOPHILS % (AUTO) 0.3 %; EOSINOPHILS % (AUTO) 0.2 %; HCT - HEMATOCRIT 32.6 % (42.0-52.0); HGB - HEMOGLOBIN 10.9 g/dL (14.0-18.0); LYMPHOCYTES # (AUTO) 1.7 10^3/uL (1.5-3.5); MEAN CORPUSCULAR HEMOGLOBIN 31.1 pg (27.0-31.0); MEAN CORPUSCULAR HGB CONC 33.4 g/dL (32.0-36.0); MEAN CORPUSCULAR VOLUME 93.1 fL (80.0-94.0); MEAN PLATELET VOLUME 10.4 fL (7.4-11.4); MONOCYTES % (AUTO) 6.5 %; NEUTROPHILS # (AUTO) 12.5 10^3/uL (1.5-6.6); NEUTROPHILS % (AUTO) 81.3 %; PLT - PLATELET COUNT 168 10^3/uL (130-450); RED CELL DISTRIBUTION WIDTH 13.3 % (12.0-15.0); WHITE BLOOD COUNT 15.4 x10^3/uL (4.8-10.8)
[2025-01-11 06:22] LABS: CALCIUM 8.3 mg/dL (8.5-10.3); CREATININE 0.8 mg/dL (0.6-1.3); POTASSIUM 3.9 mmol/L (3.5-4.5)
[2025-01-11] MEDS: ENOXAPARIN 40 MG/0.4 ML SYRINGE SUBQ SCH (08:38)
[2025-01-11] MEDS: polyethylene glycoL 3350 17 GM PACKET PO SCH (08:38)
[2025-01-11] MEDS: AZITHROMYCIN 250 MG TABLET PO SCH (08:38)
[2025-01-11] MEDS: cefTRIAXone 2 GM VIAL IVP SCH (08:38)
--- NOTE | 2025-01-11 11:31 | PHARMACY PROGRESS NOTE ---
Best Possible Medication History Admit Date and Time: 01/10/25 1631 Home Medications Medication Instructions Recorded Confirmed Type donepezil 10 mg tablet 10 mg PO QPM 07/20/24 History risperidone 0.5 mg tablet 0.5 mg PO BID 07/20/2401/10 History tamsulosin 0.4 mg capsule 0.4 mg PO QPM 07/20/2401/10 History ascorbic acid (vitamin C) 500 mg 500 mg PO DAILY 01/1001/10/25 History tablet (C-500) cholecalciferol (vitamin D3) 25 1,000 unit PO DAILY 01/10/25 History mcg (1,000 unit) capsule glucosamine sulfate 750 mg tablet 750 mg PO DAILY 12/3101/10/25 History turmeric 400 mg capsule 400 mg PO DAILY 01/10/2506/26 History omega 7-[id number]-fish oil 100 1 cap PO DAILY 01/11/25 0 01/11/25 History mg-160 mg-1,000 mg capsule (Fish Oil) Processed by: Pharmacy ([facility] of [facility]) Medications reviewed in ED?: No Medication History completed: Yes Patient Interview: Pt unable to participate Secondary Source(s): Spouse/Significant other and Insurance records [facility] Statement: As the person ultimately responsible for medication therapy, providers are able to order a medication from an existing home medication list in [facility] via the "Reconcile Routine" prior to Confirmation of that medication by therapeutic support staff. Such practice is discouraged except when the physician, in their clinical judgment, deems that a medical need exists for a medication without regard to previous use.
--- NOTE | 2025-01-11 13:23 | PROVIDER PROGRESS NOTE ---
Subjective Prog Note Date Prog Note Date: 01/11/25 Current Medications Current Medications Current Medications: Current Medications Generic Name Dose Route Start Last Admin Trade Name Freq PRN Reason Stop Dose Admin Acetaminophen 650 mg 01/10/25 17:25 Acetaminophen 325 Mg Tablet PO Q4HR PRN Pain 1 to 4, or Fever Azithromycin 500 mg 01/11/25 09:00 01/11/25 08:38 Azithromycin 250 Mg Tablet PO 01/12/25 09:01 500 mg DAILY LEROY Administration Ceftriaxone Sodium 2 gm 01/11/25 09:00 01/11/25 08:38 Ceftriaxone 2 Gm Vial IVP 2 gm DAILY LEROY Administration Enoxaparin Sodium 40 mg 01/11/25 09:00 01/11/25 08:38 Enoxaparin 40 Mg/0.4 Ml Syringe SUBQ 40 mg DAILY LEROY Administration Ondansetron HCl 4 mg 01/10/25 17:25 Ondansetron Odt 4 Mg Tablet TL Q6HR PRN Nausea / Vomiting Ondansetron HCl 4 mg 01/10/25 17:25 Ondansetron 4 Mg/2 Ml Vial IVP Q6HR PRN Nausea / Vomiting Polyethylene Glycol 17 gm 01/11/25 09:00 01/11/25 08:38 Polyethylene Glycol 3350 17 Gm Packet PO 17 gm DAILY LEROY Administration Sodium Chloride 10 ml 01/10/25 17:25 Sodium Chloride Flush 0.9% 10 Ml Syringe IVP PRN PRN NEEDED PER PROVIDER ORDERS Sodium Chloride 10 ml 01/10/25 17:25 01/11/25 08:39 Sodium Chloride Flush 0.9% 10 Ml Syringe IVP 10 ml 0100,0900,1700 LEROY Administration Objective Vital Signs/Intake & Output Reviewed Vital Signs: Yes Vital Signs: Vital Signs x48h Temp Pulse Resp BP Pulse Ox 01/11/25 09:00 36.8 C 82 18 95/49 L 98 Intake & Output: Intake & Output 01/08/25 01/09/25 01/10/25 01/11/25 23:59 23:59 23:59 23:59 Intake Total 1650 / 1650 600 / 600 Balance 1650 / 1650 600 / 600 Weight (kg) 79 kg Objective General Appearance: positive No acute distress and Alert Eyes Bilateral: positive Normal inspection ENT: positive ENT inspection nml Neck: positive Nml inspection Respiratory: positive Chest non-tender, No respiratory distress and Rhonchi Cardiovascular: positive Regular rate & rhythm Abdomen: positive Non-tender Skin: positive Color nml Extremities: positive Non-tender Neurologic/Psychiatric: positive Other (Mentation somewhat improved today. Oriented x 1) Lab Results 01/11/25 05:41 01/11/25 05:41 Other Labs: Lab Results x24hrs 01/11/25 01/10/25 01/10/25 Range/Units 05:41 16:17 15:23 WBC 15.4 H 15.6 H (4.8-10.8) x10^3/uL RBC 3.50 L 4.20 L (4.70-6.10) 10^6/uL Hgb 10.9 L 13.2 L (14.0-18.0) g/dL Hct 32.6 L 38.7 L (42.0-52.0) % MCV 93.1 92.1 (80.0-94.0) fL MCH 31.1 H 31.4 H (27.0-31.0) pg MCHC 33.4 34.1 (32.0-36.0) g/dL RDW 13.3 13.2 (12.0-15.0) % Plt Count 168 184 (130-450) 10^3/uL MPV 10.4 9.7 (7.4-11.4) fL Neut # (Auto) 12.5 H 13.0 H (1.5-6.6) 10^3/uL Lymph # (Auto) 1.7 1.2 L (1.5-3.5) 10^3/uL [place] # (Auto) 1.0 1.3 H (0.0-1.0) 10^3/uL Eos # (Auto) 0.0 0.0 (0.0-0.7) 10^3/uL Baso # (Auto) 0.1 0.0 (0.0-0.1) 10^3/uL Absolute Nucleated RBC 0.00 0.00 x10^3/uL Nucleated RBC % 0.0 0.0 /100WBC Sodium 134 L 134 L (135-145) mmol/L Potassium 3.9 4.3 (3.5-4.5) mmol/L Chloride 104 101 (101-111) mmol/L Carbon Dioxide 24 28 (21-32) mmol/L Anion Gap 6.0 5.0 L (6-13) BUN 19 17 (6-20) mg/dL Creatinine 0.8 0.9 (0.6-1.3) mg/dL Estimated GFR (MDRD) 92 81 L (>89) Glucose 89 102 (74-104) mg/dL Lactic Acid 1.3 (0.5-2.2) mmol/L Calcium 8.3 L 9.0 (8.5-10.3) mg/dL Total Bilirubin 1.0 (0.2-1.0) mg/dL AST 12 (10-42) IU/L ALT 9 L (10-60) IU/L Alkaline Phosphatase 67 (42-121) IU/L Total Creatine Kinase 56 (30-223) IU/L Total Protein 6.8 (6.4-8.9) g/dL Albumin 3.9 (3.2-5.5) g/dL Globulin 2.9 (2.1-4.2) g/dL Albumin/Globulin Ratio 1.3 (1.0-2.2) Urine Color YELLOW Urine Clarity HAZY (CLEAR) Urine pH 6.0 (5.0-7.5) PH Ur Specific [place] 1.025 (1.002-1.030) Urine Protein 30 H (NEGATIVE) mg/dL Urine Glucose (UA) NEGATIVE (NEGATIVE) mg/dL Urine Ketones TRACE (NEGATIVE) mg/dL Urine Occult Blood MODERATE H (NEGATIVE) Urine Nitrite NEGATIVE (NEGATIVE) Urine Bilirubin NEGATIVE (NEGATIVE) Urine Urobilinogen 0.2 (NORMAL) (NORMAL) E.U./dL Ur Leukocyte Esterase MODERATE H (NEGATIVE) Urine RBC 11-25 H (0-5) /HPF Urine WBC >25 H (0-3) /HPF Urine WBC Clumps PRESENT Ur Squamous Epith Cells RARE Squamous (<= Few) Urine Bacteria Many H (None Seen) /HPF Ur Microscopic Review INDICATED Urine Culture Comments INDICATED Assessment/Plan Problem List (1) Community acquired pneumonia: Impression: Patient was placed in observation for community-acquired pneumonia in the right upper lobe was confirmed by chest x-ray. He has not shown meaningful improvement, as his WBC is still 15.4 and he is not at his baseline level of mobility Blood pressure 95/49 on morning labs, low threshold to check lactate and give fluid boluses. Holding off for now as his heart rate is 82 He needs at least 1 more day, so on just changing him to inpatient status I am continuing azithromycin for 3-day course, Rocephin for 5-day course Blood cultures in process (2) Dementia: Impression: His mentation is improved today. He is able to participate some in conversation and is oriented x 1 Qualifiers: Dementia type: unspecified type Dementia severity: unspecified severity Dementia behavioral or psychological symptom: unspecified whether behavioral, psychotic, or mood disturbance or anxiety Qualified Code(s): F03.90 - Unspecified dementia, unspecified severity, without behavioral disturbance, psychotic disturbance, mood disturbance, and anxiety (3) UTI (urinary tract infection): Impression: UA confirms UTI Rocephin as above (4) Generalized weakness: Impression: He was evaluated by Occupational Therapy, who recommends SNF at discharge He will continue PT/OT while inpatient
--- NOTE | 2025-01-11 14:48 | OT Plan of Care ---
OT Plan of Care OT Plan of Care: Diagnosis Diagnosis PNA Chief Complaint AMS Medical History (Updated 01/10/25 @ 18:57 by Brady Rae DNP) BPH (benign prostatic hyperplasia) Assessment Assessment Pt is an 84 y/o male adm with AMS, found to have hospital acquired PNA. Baseline Dementia Lives at home with , Ax1 SPT to [place]. reports recent decline in function and mobilit y. Met supine in bed, A&O to self only, place with choices. Plesanently confused, follows all commands. Performed supine to sit EOB MOD A MIN A EOB sitting during simple grooming tasks with MIN/MOD A for completion, LOB retropulsion. Attempted sit to stand unable to clear bed despite MAX A from therapist. Currently MOD-MAX A ADLs Bedpan with nursing at this time. JOHN OOB to chair as appropriate. Overall presents with decreased endurance, activity tolerance and ADL status. Will benefit from cont OT services during acute stay. Rec d/c to SNF at this time. Goals - Activities of Daily Living Improve Upper Extremity Minimal Assist Dressing to: Improve Lower Extremity Moderate Assist Dressing to: Improve Grooming/Hygiene to: Standby Assist Improve Bathing to: Moderate Assist Improve Toileting to: Moderate Assist Plan Treatment Frequency 2 to 3 times/week Duration Until goals are met -Discharge Recommendations [facility]charge Location [facility] Transport Needs at Discharge [facility]
[2025-01-12 06:04] LABS: BASOPHILS % (AUTO) 0.2 %; EOSINOPHILS # (AUTO) 0.2 10^3/uL (0.0-0.7); EOSINOPHILS % (AUTO) 2.3 %; HCT - HEMATOCRIT 31.3 % (42.0-52.0); HGB - HEMOGLOBIN 9.9 g/dL (14.0-18.0); LYMPHOCYTES # (AUTO) 1.2 10^3/uL (1.5-3.5); LYMPHOCYTES % (AUTO) 12.3 %; MEAN CORPUSCULAR HEMOGLOBIN 30.3 pg (27.0-31.0); MEAN CORPUSCULAR HGB CONC 31.6 g/dL (32.0-36.0); MEAN CORPUSCULAR VOLUME 95.7 fL (80.0-94.0); MEAN PLATELET VOLUME 10.3 fL (7.4-11.4); MONOCYTES # (AUTO) 0.7 10^3/uL (0.0-1.0); MONOCYTES % (AUTO) 7.2 %; NEUTROPHILS # (AUTO) 7.7 10^3/uL (1.5-6.6); NEUTROPHILS % (AUTO) 77.5 %; PLT - PLATELET COUNT 151 10^3/uL (130-450); RED BLOOD COUNT 3.27 10^6/uL (4.70-6.10); RED CELL DISTRIBUTION WIDTH 13.1 % (12.0-15.0); WHITE BLOOD COUNT 9.9 x10^3/uL (4.8-10.8)
[2025-01-12 06:21] LABS: CALCIUM 8.2 mg/dL (8.5-10.3); CREATININE 0.6 mg/dL (0.6-1.3); POTASSIUM 4.1 mmol/L (3.5-4.5)
[2025-01-12] MEDS: SODIUM CHLORIDE FLUSH 0.9% 10 ML SYRINGE IVP PRN (08:34)
--- NOTE | 2025-01-12 13:05 | PROVIDER PROGRESS NOTE ---
Subjective Prog Note Date Prog Note Date: 01/12/25 Subjective Subjective: Sitting up in the chair eating lunch. He is not oriented, aside from self. knows his 's name, and says she is in the next room. Current Medications Current Medications Current Medications: Current Medications Generic Name Dose Route Start Last Admin Trade Name Freq PRN Reason Stop Dose Admin Acetaminophen 650 mg 01/10/25 17:25 Acetaminophen 325 Mg Tablet PO Q4HR PRN Pain 1 to 4, or Fever Ceftriaxone Sodium 2 gm 01/11/25 09:00 01/12/25 08:32 Ceftriaxone 2 Gm Vial IVP 2 gm DAILY LEROY Administration Enoxaparin Sodium 40 mg 01/11/25 09:00 01/12/25 08:32 Enoxaparin 40 Mg/0.4 Ml Syringe SUBQ 40 mg DAILY LEROY Administration Ondansetron HCl 4 mg 01/10/25 17:25 Ondansetron Odt 4 Mg Tablet TL Q6HR PRN Nausea / Vomiting Ondansetron HCl 4 mg 01/10/25 17:25 Ondansetron 4 Mg/2 Ml Vial IVP Q6HR PRN Nausea / Vomiting Polyethylene Glycol 17 gm 01/11/25 09:00 01/12/25 08:33 Polyethylene Glycol 3350 17 Gm Packet PO 17 gm DAILY LEORY Administration Sodium Chloride 10 ml 01/10/25 17:25 01/12/25 08:34 Sodium Chloride Flush 0.9% 10 Ml Syringe IVP 10 ml PRN PRN Administration NEEDED PER PROVIDER ORDERS Sodium Chloride 10 ml 01/10/25 17:25 01/12/25 08:33 Sodium Chloride Flush 0.9% 10 Ml Syringe IVP 10 ml 0100,0900,1700 LEROY Administration Objective Vital Signs/Intake & Output Reviewed Vital Signs: Yes Vital Signs: Vital Signs x48h Temp Pulse Resp BP Pulse Ox 01/12/25 08:38 36.6 C 61 16 121/51 L 97 Intake & Output: Intake & Output 01/09/25 01/10/25 01/11/25 01/12/25 23:59 23:59 23:59 23:59 Intake Total 1650 / 1650 1630 / 1630 1660 / 1660 Balance 1650 / 1650 1630 / 1630 1660 / 1660 Weight (kg) 79 kg Objective General Appearance: positive No acute distress and Alert Eyes Bilateral: positive Normal inspection and Conjunctivae nml ENT: positive ENT inspection nml Neck: positive Nml inspection Respiratory: positive No respiratory distress and Breath sounds nml Cardiovascular: positive Regular rate & rhythm Abdomen: positive Non-tender and No distention Back: positive Nml inspection Skin: positive Color nml Extremities: positive Non-tender and No pedal edema Neurologic/Psychiatric: positive Oriented x3 Lab Results 01/12/25 05:36 01/12/25 05:36 Other Labs: Lab Results x24hrs 01/12/25 Range/Units 05:36 WBC 9.9 (4.8-10.8) x10^3/uL RBC 3.27 L (4.70-6.10) 10^6/uL Hgb 9.9 L (14.0-18.0) g/dL Hct 31.3 L (42.0-52.0) % MCV 95.7 H (80.0-94.0) fL MCH 30.3 (27.0-31.0) pg MCHC 31.6 L (32.0-36.0) g/dL RDW 13.1 (12.0-15.0) % Plt Count 151 (130-450) 10^3/uL MPV 10.3 (7.4-11.4) fL Neut # (Auto) 7.7 H (1.5-6.6) 10^3/uL Lymph # (Auto) 1.2 L (1.5-3.5) 10^3/uL [place] # (Auto) 0.7 (0.0-1.0) 10^3/uL Eos # (Auto) 0.2 (0.0-0.7) 10^3/uL Baso # (Auto) 0.0 (0.0-0.1) 10^3/uL Absolute Nucleated RBC 0.00 x10^3/uL Nucleated RBC % 0.0 /100WBC Sodium 133 L (135-145) mmol/L Potassium 4.1 (3.5-4.5) mmol/L Chloride 103 (101-111) mmol/L Carbon Dioxide 24 (21-32) mmol/L Anion Gap 6.0 (6-13) BUN 17 (6-20) mg/dL Creatinine 0.6 (0.6-1.3) mg/dL Estimated GFR (MDRD) 129 (>89) Glucose 82 (74-104) mg/dL Calcium 8.2 L (8.5-10.3) mg/dL Assessment/Plan Problem List (1) Community acquired pneumonia: Impression: Patient was placed in observation for community-acquired pneumonia in the right upper lobe was confirmed by chest x-ray. He is improving with normal oxygen saturations on room air this AM. He is azithromycin day 10/02, rocephin day 3. Blood cultures in process: no growth in 2 days. This afternoon, at the evening meal, he appears to have aspirated. His oxygen saturations went down to 87-88% on room air, recovered to 93% on 3L NC. I think he needs an additional midnight. With this new hypoxia, he is NOT medically clear for transfer. I have asked that he be up to chair with all meals. I have changed his diet to puree, and asked that staff feed him for all meals. I will continue rocephin for forseeable future. Will continue to watch CBC and the need for supplemental O2. (2) Dementia: Impression: Oriented to self only. knows who his is. discussion with regarding his decline. See ACP note. Qualifiers: Dementia behavioral or psychological symptom: unspecified whether behavioral, psychotic, or mood disturbance or anxiety Dementia severity: u nspecified severity Dementia type: unspecified type Qualified Code(s): F03.90 - Unspecified dementia, unspecified severity, without behavioral disturbance, psychotic disturbance, mood disturbance, and anxiety (3) UTI (urinary tract infection): Impression: UA confirms UTI Rocephin as above Cultures positive for E Coli. Rodríguez sensitive. (4) Generalized weakness: Impression: He was evaluated by Occupational Therapy, who recommends SNF at discharge He will continue PT/OT while inpatient We are working with social work to obtain SNF for rehab. He should qualify for SNF under ACO waiver. Prior to hospitalization, was able to be cared for at home, although is in need of some help. She has no family or friends coming in to assist. I have spent 40 minutes in the care of this patient today. This includes time [id number], review and ordering of diagnostic imaging and laboratory studies. This is exclusive of time spent in advance care planning.
--- NOTE | 2025-01-12 14:50 | PT Plan of Care ---
PT Plan of Care Physical Therapy Plan of Care: Diagnosis Diagnosis PNA Diagnosis ecoli Referring Provider Brady Rae Patient Status Inpatient Chief Complaint Chief Complaint AMS Onset of Chief Complaint RADIOLOGY CLERK Medical History (Updated 01/10/25 @ 18:57 by Brady Rae DNP) BPH (benign prostatic hyperplasia) Balance/ Functional Results Sitting Balance Fair Standing Balance Fair Assessment Assessment Pt is an 84yo M referred for PT eval d/t limited mobility. Admitted with AMS, found to have hospital acquired PNA. Baseline Dementia A&Ox1. Lives at home with who assists with stand pivot transfer to . reports recent decline in function and mobility. Cleared for PT eval. Pt met supine in bed, A&O to self only and pleasantly confused, follows all commands. Performed supine to sit EOB with modAx1-2, STS transfer with modAx2 and notable retropulsion in standing. Requires skilled assist for steps in place and stand pivot transfer to chair. Recommend nsg use MIRELLA lift for transfers as needed. Pt is presenting with overall decreased endurance, activity tolerance and balance impairments. Will benefit from skilled PT in acute setting. When medically clear, PT rec dc to SNF d/t deconditioning, fall risk, and unable to provide current LOC. Goals Improve bed mobility to: Modified Independent Improve supine to sit to: Modified Independent Improve pivot transfer ability Minimal Assist to: Improve sit to supine to: Minimal Assist Improve gait ability to: Min A Assistive Device Used: Front Wheeled Walker Improve Sitting Balance to: Good Improve Standing Balance to: Fair PT Plan of Care Frequency 1-2x/day Duration Until goals are met Discharge Recommendations Discharge Location Longterm Facility Transport Needs at Discharge BLS v van Other BLS d/t poor trunk control, high fall risk and A &Ox1
--- NOTE | 2025-01-12 18:10 | ADVANCE CARE PLANNING NOTE ---
Advance Care Planning Planning Encounter Date: 01/12/25 Purpose: patient with progressive dementia and increasing care needs at home. Parties in Attendance: Patient (not participating), patient's spouse, Soo Brown NACHO Decisional Capacity of the Patient: not oriented or able to participate. Diagnosis for Encounter (1) Community acquired pneumonia: (2) Dementia: Qualifiers: Dementia type: unspecified type Dementia severity: unspecified severity Dementia behavioral or psychological symptom: unspecified whether behavioral, psychotic, or mood disturbance or anxiety Qualified Code(s): F03.90 - Unspecified dementia, unspecified severity, without behavioral disturbance, psychotic disturbance, mood disturbance, and anxiety (3) UTI (urinary tract infection): (4) Generalized weakness: Encounter Subjective/Patient's Story: worsening dementia. oriented to self only. lives at home w who provides all of his care. Has been doing well until this event. But, she is tired with 24/7 caregiving. has a son who lives in [place], but rarely visits and only stays for a few hours when he comes several times a year. no one else available to assist with care giving needs. Objective/Medical Story: CAP with hyoxia and UTI in the face of worsening dementia. recommendation is [place] SNF [place]. is [facility] to get assistance through [facility] for some caregiving help. Hernandez going to a SNF for several weeks will help her figure this out. He then has the opportunity to regain strength, and hopefull his care will be less burdensome when he arrives home . Federico understands that dementia is progressive, and is seeing her suffer the effects of it. I explained to her that resusitation in the event of a catastrophic occurance overall will only prolong his suffering from dementia. She tells me that she had never understood this before, but she understands that now, and sees it as very obvious. She would like his goals of care to be DNR/DNI, but otherwise he should receive full medical treatment. Goals of Care: This pt needs care for the rest of his life. the responsibility for his care has become more onerous over the last several months, as his dementia has progressed. his QOL is decreasing. Goals: DNR, selective treatment. Plan: POLST filled out today. DNR, selective treatment, do not intubate. Code Status: Do Not Attempt Resuscitation Time spent on advance care plannin min
[2025-01-12] MEDS: metroNIDAZOLE 500 MG/100 ML 500 MG/100 ML BAG IV SCH (20:23)
[2025-01-12] MEDS: ACETAMINOPHEN 325 MG TABLET PO PRN (21:54)
[2025-01-13 05:41] LABS: BASOPHILS % (AUTO) 0.2 %; EOSINOPHILS % (AUTO) 0.2 %; HCT - HEMATOCRIT 29.8 % (42.0-52.0); HGB - HEMOGLOBIN 10.1 g/dL (14.0-18.0); LYMPHOCYTES # (AUTO) 1.3 10^3/uL (1.5-3.5); LYMPHOCYTES % (AUTO) 10.4 %; MEAN CORPUSCULAR HEMOGLOBIN 30.8 pg (27.0-31.0); MEAN CORPUSCULAR HGB CONC 33.9 g/dL (32.0-36.0); MEAN CORPUSCULAR VOLUME 90.9 fL (80.0-94.0); MONOCYTES # (AUTO) 0.8 10^3/uL (0.0-1.0); MONOCYTES % (AUTO) 6.1 %; NEUTROPHILS # (AUTO) 10.4 10^3/uL (1.5-6.6); NEUTROPHILS % (AUTO) 82.7 %; PLT - PLATELET COUNT 182 10^3/uL (130-450); RED BLOOD COUNT 3.28 10^6/uL (4.70-6.10); RED CELL DISTRIBUTION WIDTH 12.9 % (12.0-15.0); WHITE BLOOD COUNT 12.5 x10^3/uL (4.8-10.8)
[2025-01-13 05:58] LABS: CALCIUM 8.2 mg/dL (8.5-10.3); CREATININE 0.6 mg/dL (0.6-1.3); POTASSIUM 4.2 mmol/L (3.5-4.5)
--- NOTE | 2025-01-13 10:25 | PROVIDER PROGRESS NOTE ---
Subjective Prog Note Date Prog Note Date: 01/13/25 Subjective Subjective: When asked how he is today, he tells me "alive". He does not know that he is in the hospital, and is not oriented to time. He seems somewhat happier overall, getting up and out of bed several times a day, Current Medications Current Medications Current Medications: Current Medications Generic Name Dose Route Start Last Admin Trade Name Freq PRN Reason Stop Dose Admin Acetaminophen 650 mg 01/10/25 17:25 01/13/25 09:15 Acetaminophen 325 Mg Tablet PO 650 mg Q4HR PRN Administration Pain 1 to 4, or Fever Ceftriaxone Sodium 2 gm 01/11/25 09:00 01/13/25 09:14 Ceftriaxone 2 Gm Vial IVP 2 gm DAILY LEROY Administration Enoxaparin Sodium 40 mg 01/11/25 09:00 01/13/25 09:15 Enoxaparin 40 Mg/0.4 Ml Syringe SUBQ 40 mg DAILY LEROY Administration Metronidazole 500 mg in 100 mls @ 100 mls/hr 01/12/25 20:00 01/13/25 05:05 Flagyl 500 Mg/100 Ml IV Infused Q8H LEROY Infusion Ondansetron HCl 4 mg 01/10/25 17:25 Ondansetron Odt 4 Mg Tablet TL Q6HR PRN Nausea / Vomiting Ondansetron HCl 4 mg 01/10/25 17:25 Ondansetron 4 Mg/2 Ml Vial IVP Q6HR PRN Nausea / Vomiting Polyethylene Glycol 17 gm 01/11/25 09:00 01/13/25 09:15 Polyethylene Glycol 3350 17 Gm Packet PO 17 gm DAILY LEROY Administration Sodium Chloride 10 ml 01/10/25 17:25 01/12/25 08:34 Sodium Chloride Flush 0.9% 10 Ml Syringe IVP 10 ml PRN PRN Administration NEEDED PER PROVIDER ORDERS Sodium Chloride 10 ml 01/10/25 17:25 01/13/25 09:14 Sodium Chloride Flush 0.9% 10 Ml Syringe IVP 10 ml 0100,0900,1700 LEROY Administration Objective Vital Signs/Intake & Output Reviewed Vital Signs: Yes Vital Signs: Vital Signs x48h Temp Pulse Resp BP Pulse Ox 01/13/25 07:46 36.3 C L 63 24 110/53 L 97 Intake & Output: Intake & Output 01/10/25 01/11/25 01/12/25 06/14/25 23:59 23:59 23:59 23:59 Intake Total 1650 / 1650 1630 / 1630 2110 / 2110 560 / 560 Output Total 200 / 200 Balance 1650 / 1650 1630 / 1630 1909 / 1909 560 / 560 Weight (kg) 79 kg Objective General Appearance: positive No acute distress and Alert Eyes Bilateral: positive Normal inspection and Conjunctivae nml ENT: positive ENT inspection nml Neck: positive Nml inspection Respiratory: positive No respiratory distress and Breath sounds nml Cardiovascular: positive Regular rate & rhythm Abdomen: positive Non-tender and No distention Back: positive Nml inspection Skin: positive Color nml Extremities: positive Non-tender and No pedal edema Neurologic/Psychiatric: positive Oriented x3 Lab Results 01/13/25 05:31 01/13/25 05:31 Other Labs: Lab Results x24hrs 01/13/25 Range/Units 05:31 WBC 12.5 H (4.8-10.8) x10^3/uL RBC 3.28 L (4.70-6.10) 10^6/uL Hgb 10.1 L (14.0-18.0) g/dL Hct 29.8 L (42.0-52.0) % MCV 90.9 (80.0-94.0) fL MCH 30.8 (27.0-31.0) pg MCHC 33.9 (32.0-36.0) g/dL RDW 12.9 (12.0-15.0) % Plt Count 182 (130-450) 10^3/uL MPV 10.0 (7.4-11.4) fL Neut # (Auto) 10.4 H (1.5-6.6) 10^3/uL Lymph # (Auto) 1.3 L (1.5-3.5) 10^3/uL [place] # (Auto) 0.8 (0.0-1.0) 10^3/uL Eos # (Auto) 0.0 (0.0-0.7) 10^3/uL Baso # (Auto) 0.0 (0.0-0.1) 10^3/uL Absolute Nucleated RBC 0.00 x10^3/uL Nucleated RBC % 0.0 /100WBC Sodium 132 L (135-145) mmol/L Potassium 4.2 (3.5-4.5) mmol/L Chloride 103 (101-111) mmol/L Carbon Dioxide 25 (21-32) mmol/L Anion Gap 4.0 L (6-13) BUN 14 (6-20) mg/dL Creatinine 0.6 (0.6-1.3) mg/dL Estimated GFR (MDRD) 129 (>89) Glucose 93 (74-104) mg/dL Calcium 8.2 L (8.5-10.3) mg/dL Assessment/Plan Problem List (1) Community acquired pneumonia: Impression: Patient was placed in observation for community-acquired pneumonia in the right upper lobe was confirmed by chest x-ray. He is improving with normal oxygen saturations on room air this AM. He has completed 3 d of azithromycin, rocephin day 11/04. For aspiration event evening of 01/12, i added flagyl. Blood cultures in process: no growth in 2 days. 01/12, at the evening meal, he appears to have aspirated. His oxygen saturations went down to 87-88% on room air, recovered to 93% on 3L NC. . With this new hypoxia, he was NOT medically clear for transfer. He was on oxygen again overnight, but has been able to wean to room air. I will plan to treat for aspiration through 01/17 (5 days from event). I have asked that he be up to chair with all meals. I have changed his diet to puree, and asked that staff feed him for all meals. I will continue rocephin with change to Augmentin on dc. I have added flagyl. Will continue to watch CBC and the need for supplemental O2. He does have elevated WBC post aspiration event. (2) Dementia: Impression: Oriented to self only. knows who his is. discussion with regarding his decline. See ACP note. Qualifiers: Dementia behavioral or psychological symptom: unspecified whether behavioral, psychotic, or mood disturbance or anxiety Dementia severity: u nspecified severity Dementia type: unspecified type Qualified Code(s): F03.90 - Unspecified dementia, unspecified severity, without behavioral disturbance, psychotic disturbance, mood disturbance, and anxiety (3) UTI (urinary tract infection): Impression: UA confirms UTI Rocephin as above- he is day 4 Cultures positive for E Coli. Rodríguez sensitive. (4) Generalized weakness: Impression: He was evaluated by Occupational Therapy, who recommends SNF at discharge He will continue PT/OT while inpatient We are working with social work to obtain SNF for rehab. He should qualify for SNF under ACO waiver. Prior to hospitalization, was able to be cared for at home, although is in need of some help. She has no family or friends coming in to assist. Should have been able to transfer today, but aspiration event, hypoxia occured. He has now recovered quickly and well from that and can transfer to SNF on 01/14. I have spent 38 minutes in the care of this patient today. This includes time [id number], review and ordering of diagnostic imaging and laboratory studies.
[2025-01-14 05:53] LABS: BASOPHILS # (AUTO) 0.1 10^3/uL (0.0-0.1); BASOPHILS % (AUTO) 0.7 %; EOSINOPHILS # (AUTO) 0.3 10^3/uL (0.0-0.7); EOSINOPHILS % (AUTO) 3.9 %; HCT - HEMATOCRIT 29.5 % (42.0-52.0); HGB - HEMOGLOBIN 10.1 g/dL (14.0-18.0); LYMPHOCYTES # (AUTO) 1.3 10^3/uL (1.5-3.5); LYMPHOCYTES % (AUTO) 19.9 %; MEAN CORPUSCULAR HEMOGLOBIN 31.1 pg (27.0-31.0); MEAN CORPUSCULAR HGB CONC 34.2 g/dL (32.0-36.0); MEAN CORPUSCULAR VOLUME 90.8 fL (80.0-94.0); MEAN PLATELET VOLUME 9.8 fL (7.4-11.4); MONOCYTES # (AUTO) 0.7 10^3/uL (0.0-1.0); MONOCYTES % (AUTO) 10.8 %; NEUTROPHILS # (AUTO) 4.3 10^3/uL (1.5-6.6); NEUTROPHILS % (AUTO) 64.3 %; PLT - PLATELET COUNT 192 10^3/uL (130-450); RED BLOOD COUNT 3.25 10^6/uL (4.70-6.10); WHITE BLOOD COUNT 6.8 x10^3/uL (4.8-10.8)
[2025-01-14 06:08] LABS: CALCIUM 8.3 mg/dL (8.5-10.3); CREATININE 0.5 mg/dL (0.6-1.3); POTASSIUM 4.1 mmol/L (3.5-4.5)
[2025-01-14] MEDS: CARBOXYMETHYLCELLULOSE OPHTH DROPS EACHEYE PRN (07:39)
--- NOTE | 2025-01-14 09:59 | PROVIDER PROGRESS NOTE ---
Subjective Prog Note Date Prog Note Date: 01/13/25 Subjective Subjective: remains oriented to self only, but pleasant and calm, even though he has no idea what is happening around him. Thankfully is not agitated by missing his . Current Medications Current Medications Current Medications: Current Medications Generic Name Dose Route Start Last Admin Trade Name Freq PRN Reason Stop Dose Admin Acetaminophen 650 mg 01/10/25 17:25 01/13/25 09:15 Acetaminophen 325 Mg Tablet PO 650 mg Q4HR PRN Administration Pain 1 to 4, or Fever Carboxymethylcellulose 1 drops 01/14/25 07:27 01/14/25 07:39 Carboxymethylcellulose Ophth Drops EACHEYE 1 drops PRN PRN Administration Dry Eye Ceftriaxone Sodium 2 gm 01/11/25 09:00 01/14/25 08:08 Ceftriaxone 2 Gm Vial IVP 2 gm DAILY LEROY Administration Enoxaparin Sodium 40 mg 01/11/25 09:00 01/14/25 08:08 Enoxaparin 40 Mg/0.4 Ml Syringe SUBQ 40 mg DAILY LEROY Administration Metronidazole 500 mg in 100 mls @ 100 mls/hr 01/12/25 20:00 01/14/25 05:00 Flagyl 500 Mg/100 Ml IV Infused Q8H LEROY Infusion Ondansetron HCl 4 mg 01/10/25 17:25 Ondansetron Odt 4 Mg Tablet TL Q6HR PRN Nausea / Vomiting Ondansetron HCl 4 mg 01/10/25 17:25 Ondansetron 4 Mg/2 Ml Vial IVP Q6HR PRN Nausea / Vomiting Polyethylene Glycol 17 gm 01/11/25 09:00 01/14/25 08:08 Polyethylene Glycol 3350 17 Gm Packet PO 17 gm DAILY LEROY Administration Sodium Chloride 10 ml 01/10/25 17:25 01/13/25 20:09 Sodium Chloride Flush 0.9% 10 Ml Syringe IVP 10 ml PRN PRN Administration NEEDED PER PROVIDER ORDERS Sodium Chloride 10 ml 01/10/25 17:25 01/14/25 08:08 Sodium Chloride Flush 0.9% 10 Ml Syringe IVP 10 ml 0100,0900,1700 LEROY Administration Objective Vital Signs/Intake & Output Reviewed Vital Signs: Yes Vital Signs: Vital Signs x48h Temp Pulse Resp BP Pulse Ox 01/14/25 07:21 36.3 C L 53 L 18 122/53 L 96 Intake & Output: Intake & Output 01/11/25 01/12/25 01/13/25 01/14/25 23:59 23:59 23:59 23:59 Intake Total 1630 / 1630 2110 / 2110 1630 / 1630 810 / 810 Output Total 200 / 200 400 / 400 100 / 100 Balance 1630 / 1630 1910 / 1910 1230 / 1230 710 / 710 Objective General Appearance: positive No acute distress and Alert Eyes Bilateral: positive Normal inspection and Conjunctivae nml ENT: positive ENT inspection nml Neck: positive Nml inspection Respiratory: positive No respiratory distress and Breath sounds nml Cardiovascular: positive Regular rate & rhythm Abdomen: positive Non-tender and No distention Back: positive Nml inspection Skin: positive Color nml Extremities: positive Non-tender and No pedal edema Neurologic/Psychiatric: positive Oriented x3 Lab Results 01/14/25 05:47 01/14/25 05:47 Other Labs: Lab Results x24hrs 01/14/25 Range/Units 05:47 WBC 6.8 (4.8-10.8) x10^3/uL RBC 3.25 L (4.70-6.10) 10^6/uL Hgb 10.1 L (14.0-18.0) g/dL Hct 29.5 L (42.0-52.0) % MCV 90.8 (80.0-94.0) fL MCH 31.1 H (27.0-31.0) pg MCHC 34.2 (32.0-36.0) g/dL RDW 13.0 (12.0-15.0) % Plt Count 192 (130-450) 10^3/uL MPV 9.8 (7.4-11.4) fL Neut # (Auto) 4.3 (1.5-6.6) 10^3/uL Lymph # (Auto) 1.3 L (1.5-3.5) 10^3/uL Cache # (Auto) 0.7 (0.0-1.0) 10^3/uL Eos # (Auto) 0.3 (0.0-0.7) 10^3/uL Baso # (Auto) 0.1 (0.0-0.1) 10^3/uL Absolute Nucleated RBC 0.00 x10^3/uL Nucleated RBC % 0.0 /100WBC Sodium 131 L (135-145) mmol/L Potassium 4.1 (3.5-4.5) mmol/L Chloride 103 (101-111) mmol/L Carbon Dioxide 25 (21-32) mmol/L Anion Gap 3.0 L (6-13) BUN 8 (6-20) mg/dL Creatinine 0.5 L (0.6-1.3) mg/dL Estimated GFR (MDRD) 159 (>89) Glucose 88 (74-104) mg/dL Calcium 8.3 L (8.5-10.3) mg/dL Assessment/Plan Problem List (1) Community acquired pneumonia: Impression: Patient was placed in observation for community-acquired pneumonia in the right upper lobe was confirmed by chest x-ray. He is improving with normal oxygen saturations on room air this AM. He has completed 3 d of azithromycin, should have been rocephin day 12/04. For aspiration event evening of 01/12, i added flagyl, and now changing that to augmentin. I am now changing him to Augmentin, as he has pulled out his IV this afternoon. Blood cultures in process:drawn 01/10 NGTD. 01/12, at the evening meal, he appears to have aspirated. His oxygen saturations went down to 87-88% on room air, recovered to 93% on 3L NC. . With this new hypoxia, he was NOT medically clear for transfer. has been able to wean to room air. I will plan to treat for aspiration through 01/17 (5 days from event). I have asked that he be up to chair with all meals. I have changed his diet to puree, and asked that staff feed him for all meals. Will continue to watch CBC and the need for supplemental O2. He does have elevated WBC post aspiration event, then normalized within one day. (2) Dementia: Impression: Oriented to self only. knows who his is. discussion with regarding his decline. See ACP note. Qualifiers: Dementia behavioral or psychological symptom: unspecified whether behavioral, psychotic, or mood disturbance or anxiety Dementia severity: u nspecified severity Dementia type: unspecified type Qualified Code(s): F03.90 - Unspecified dementia, unspecified severity, without behavioral disturbance, psychotic disturbance, mood disturbance, and anxiety (3) UTI (urinary tract infection): Impression: UA confirms UTI as of 01/14, he has completed therapy for this. Cultures positive for E Coli. Rodríguez sensitive. (4) Generalized weakness: Impression: He was evaluated by Occupational Therapy, who recommends SNF at discharge He will continue PT/OT while inpatient We are working with social work to obtain SNF for rehab. He should qualify for SNF under ACO waiver. Prior to hospitalization, was able to be cared for at home, although is in need of some help. She has no family or friends coming in to assist. Should have been able to transfer, but aspiration event, hypoxia occured. He has now recovered quickly and well from that and can transfer to SNF on 01/14. Transportation not available 01/14. Will go to [facility] via [employer] van 01/15. I have spent 36 minutes in the care of this patient today. This includes time [id number], review and ordering of diagnostic imaging and laboratory studies. (5) Hyponatremia: Impression: Drifting down. I have added salt tabs. I will check BMP in the AM. I will likely dc on salt tabs. probably related to poor intake. he is not on an SSRI Laboratory Tests 01/10/25 01/11/25 01/12/25 15:23 05:41 05:36 Sodium 134 L 134 L 133 L 01/13/25 01/14/25 05:31 05:47 Sodium 132 L 131 L I have spent 36 minutes in the care of this patient today. This includes time [id number], review and ordering of diagnostic imaging and laboratory studies.
[2025-01-14] MEDS: SODIUM CHLORIDE 1 GM TABLET PO SCH (10:31)
[2025-01-14] MEDS: AMOX/CLAV 875 MG/125 MG TABLET PO SCH (20:19)
[2025-01-15 01:11] VITALS: O2SAT 98
[2025-01-15 05:14] LABS: BASOPHILS % (AUTO) 0.4 %; EOSINOPHILS # (AUTO) 0.3 10^3/uL (0.0-0.7); EOSINOPHILS % (AUTO) 3.8 %; HCT - HEMATOCRIT 30.9 % (42.0-52.0); HGB - HEMOGLOBIN 10.1 g/dL (14.0-18.0); LYMPHOCYTES # (AUTO) 1.4 10^3/uL (1.5-3.5); LYMPHOCYTES % (AUTO) 19.9 %; MEAN CORPUSCULAR HGB CONC 32.7 g/dL (32.0-36.0); MEAN CORPUSCULAR VOLUME 91.7 fL (80.0-94.0); MEAN PLATELET VOLUME 9.9 fL (7.4-11.4); MONOCYTES # (AUTO) 0.7 10^3/uL (0.0-1.0); MONOCYTES % (AUTO) 10.6 %; NEUTROPHILS # (AUTO) 4.3 10^3/uL (1.5-6.6); NEUTROPHILS % (AUTO) 63.7 %; PLT - PLATELET COUNT 224 10^3/uL (130-450); RED BLOOD COUNT 3.37 10^6/uL (4.70-6.10); RED CELL DISTRIBUTION WIDTH 13.1 % (12.0-15.0); WHITE BLOOD COUNT 6.8 x10^3/uL (4.8-10.8)
[2025-01-15 05:29] LABS: CALCIUM 8.3 mg/dL (8.5-10.3); CREATININE 0.5 mg/dL (0.6-1.3); POTASSIUM 3.9 mmol/L (3.5-4.5)
--- NOTE | 2025-01-15 13:29 | Discharge Summary ---
"Discharge Summary Admit Date: 01/10/25 Discharge Date: 01/15/25 Discharging Provider: Soo Brown PA-C Primary Care Provider: Tyrone Caballero Code Status: Do Not Attempt Resuscitation DIAGNOSES Discharge Diagnoses with Status of Each Condition: Community-acquired pneumonia, resolved Aspiration pneumonia, no longer hypoxic. Antibiotics through 01/17. Dementia, chronic and progressive Urinary tract infection, pansensitive E. coli, treatment complete 01/14 Generalized weakness, PT and OT have recommended custodial for rehab. Hyponatremia, salt tabs, recheck BMP in 7 to 10 days. HPI History of Present Illness: 84-year-old male with PMH BPH, dementia who presents to the ER with weakness. His states that he is normally able to transfer, but not much more than that. She says today he could not even sit up in bed. He would not eat. denies fever, chills, chest pain, dyspnea, cough. In the ER, workup was significant for white blood cell count 15.6. UA concerning for UTI. CT head was without acute abnormality. Chest x-ray with right upper lobe infiltrate suggestive of pneumonia. Patient is severely demented, and unable to perform ADLs. His is unable to care for him. Hospitalist was contacted for observation for generalized weakness and pneumonia with concern for clinical deterioration given his inability to care for himself CONSULTS | PROCEDURES Procedures: Chest x-ray: Finding may represent right upper lobe infiltrate. Left lung is clear. No pleural effusion or pneumothorax. Head CT: No acute intracranial pathology. Age-related volume loss and mild white matter small vessel chronic ischemic changes. HOSPITAL COURSE Hospital Course: This is an 84-year-old gentleman who came into the ER with weakness. His is his sole caregiver at home. She has been able to manage his care with his dementia but at the point that he came in she was not able to manage him. He was not able to get out of bed he would not eat. He was diagnosed with a community-acquired pneumonia on admission. He did not require supplemental oxygen. He received a 3-day course of azithromycin and a 5-day course of Rocephin. By hospital day 3 in the evening the patient had an aspiration event at dinnertime. His oxygen saturations went down to 87 to 88% on room air and he required 3 L of nasal cannula oxygen. Flagyl was added to his Rocephin for antibiotic therapy and within 24 hours he was able to wean off of oxygen. He will be treated for a total of 5 days for his aspiration pneumonia. We will finish out his course with Augmentin twice daily. He will finish antibiotics on the evening of 01/17. Also diagnosed with a pansensitive E. coli urinary tract infection which was adequately treated with Rocephin as above. The patient had worsening weakness. He was evaluated by occupational and physical therapies who did recommend custodial for rehab with a goal of returning home to live with his if at all possible. Advance care planning conversation was held with the . POLST is on file. His CODE STATUS is DNR selective treatment. ALLERGIES Allergies Allergy/AdvReac Type Severity Reaction Status Date / Time No Known Drug Allergies Allergy Verified 01/10/25 15:07 MEDICATIONS Ambulatory Orders Medication Instructions Recorded Confirmed acetaminophen 325 mg tablet 650 mg (2 x 325 mg) PO Q4H R PRN 01/15/25 Pain 1 to 4, or Fever #30 tabs amoxicillin 875 mg-potassium 1 tab PO BID #5 tabs 12/31 01/24 clavulanate 125 mg tablet ascorbic acid (vitamin C) 500 mg 500 mg PO DAILY #30 t abs 01/15/25 01/10/25 tablet (C-500) cholecalciferol (vitamin D3) 25 1,000 unit PO DAILY #3 0 caps 01/15/25 01/10/25 mcg (1,000 unit) capsule donepezil 10 mg tablet 10 mg PO QPM #30 tabs 01/10/25 glucosamine sulfate 750 mg tablet 750 mg PO DAILY #60 tabs 01/15/25 01/10/25 omega 1-ioj-guq-fish oil 100 1 cap PO DAILY #30 caps 0 01/15/25 01/11/25 mg-160 mg-1,000 mg capsule (Fish Oil) risperidone 0.5 mg tablet 0.5 mg PO BID #60 tabs 01/1501/10/25 sodium chloride 1,000 mg soluble 1,000 mg PO DAILY #30 tabs 01/15/25 tablet tamsulosin 0.4 mg capsule 0.4 mg PO QPM #30 caps 01/1501/10/25 turmeric 400 mg capsule 400 mg PO DAILY #20 caps 01/10/25 PHYSICAL EXAM AT DISCHARGE Vital Signs: Vital Signs x48h Temp Pulse Resp BP BP Pulse Ox 01/15/25 08:18 36.6 C 56 L 16 136/53 H 84/54 L 98 Physical Exam Other/Comments: General Appearance: positive No acute distress and Alert Eyes Bilateral: positive Normal inspection and Conjunctivae nml ENT: positive ENT inspection nml Neck: positive Nml inspection Respiratory: positive No respiratory distress and Breath sounds nml Cardiovascular: positive Regular rate & rhythm Abdomen: positive Non-tender and No distention Back: positive Nml inspection Skin: positive Color nml Extremities: positive Non-tender and No pedal edema Neurologic/Psychiatric: positive Oriented x3 LABS 01/15/25 04:53 01/15/25 04:53 FOLLOW UP Follow Up: PCP as assigned at the SNF TIME SPENT Time Spent in Discharge (Minutes): 45 Discharge Plan Discharge Patient Disposition: 03 [facility] DC/Xfer Condition: Fair Prescriptions: New acetaminophen 325 mg Tablet 650 mg PO Q4HR PRN (Reason: Pain 1 to 4, or Fever) Qty: 30 0RF amoxicillin-pot clavulanate 875-125 mg Tablet 1 tab PO BID Qty: 5 0RF sodium chloride 1,000 mg Tablet,Soluble 1,000 mg PO DAILY Qty: 30 0RF Continued donepezil 10 mg tablet 10 mg PO QPM Qty: 30 0RF ascorbic acid (vitamin C) [C-500] 500 mg tablet 500 mg PO DAILY Qty: 30 0RF Patient Comments: patient/spouse unsure of strength tamsulosin 0.4 mg capsule 0.4 mg PO QPM Qty: 30 0RF risperidone 0.5 mg tablet 0.5 mg PO BID Qty: 60 0RF cholecalciferol (vitamin D3) 25 mcg (1,000 unit) capsule 1,000 unit PO DAILY Qty: 30 0RF Patient Comments: patient/spouse unsure of strength glucosamine sulfate 750 mg tablet 750 mg PO DAILY Qty: 60 0RF Patient Comments: patient/spouse unsure of strength Fish Oil 100-160-1,000 mg capsule 1 cap PO DAILY Qty: 30 0RF Patient Comments: patient/spouse unsure of strength turmeric 400 mg capsule 400 mg PO DAILY Qty: 20 0RF Patient Comments: patient/spouse unsure of strength Activity Restrictions: Activity as Tolerated Diet: Soft Health Concerns: You are an 84-year-old male with dementia whose brought you into the emergency department because she could no longer care for you at home. You had a pneumonia and we treated you for that. You also had a urinary tract infection which you were treated for. You were seen by physical and Occupational Therapy and they deemed that you were too weak to transfer back home. Therefore you are going to a custodial facility for rehabilitation with a goal of returning home with your again. While you have been in the hospital you had an aspiration event when you are eating your dinner. For this reason you need to slow down when you eat. We are giving you a soft diet and you should only have bite-size pieces of food at a time. We are treating you with Augmentin for aspiration Print Language: Turkish Patient Instructions: Dysphagia Diet Advanced Stand Alone Forms: SNF Discharge"
[2025-01-15 14:46] VITALS: BP 116/56; TEMP 97.3
== END 2025-01-15 15:00 | DRG 194 ==
LOC: MS2 14:53 → ED 14:53 → MS2 17:15
PROVIDERS: ADMIT Nurse Practitioner Acute Care; ATTEND Nurse Practitioner Acute Care
DX: Z66 Do not resuscitate; J18.9 Pneumonia, unspecified organism; J69.0 Pneumonitis due to inhalation of food and vomit; R09.02 Hypoxemia; E87.1 Hypo-osmolality and hyponatremia; N17.9 Acute kidney failure, unspecified; F03.90 Unspecified dementia, unspecified severity, without behavioral disturbance, psychotic disturbance, mood disturbance, and anxiety; N39.0 Urinary tract infection, site not specified; B96.20 Unspecified Escherichia coli [E. coli] as the cause of diseases classified elsewhere; D64.9 Anemia, unspecified; R53.1 Weakness; R65.10 Systemic inflammatory response syndrome (SIRS) of non-infectious origin without acute organ dysfunction; N40.0 Benign prostatic hyperplasia without lower urinary tract symptoms